=== PATIENT | female | born 1975 | race Caucasian/White ===

== ENCOUNTER 2016-11-08 11:53 | Emergency (ER) | payer MEDICAID ==
[~2016-11-08] VITALS: Ht 157.5 cm; Wt 75.0 kg
[2016-11-08] MEDS ORDERED: MORPHINE SULFATE 4 MG/ML, 1ML ONE ×2 (12:22→15:14)
[2016-11-08] MEDS: MORPHINE SULFATE 4 MG/ML, 1ML IVPush PRN ×2 (12:27→15:23)
[2016-11-08] MEDS ORDERED: SODIUM CHLORIDE 0.9% 1,000ML IVBOLUS ONE (12:30)
[2016-11-08] MEDS ORDERED: ONDANSETRON 2MG/ML, 2ML IVPush ONE (12:30)
[2016-11-08] MEDS ORDERED: SODIUM CHLORIDE FLUSH 10ML SYR IVF ONE (12:30)
[2016-11-08 12:52] LABS: BLOOD UREA NITROGEN 10 mg/dL (7-18)
[2016-11-08 12:58] LABS: ASPARTATE AMINO TRANSFERASE 15 U/L (15-37)
[2016-11-08] MEDS ORDERED: morphine SULFATE 10 MG/ML, 1ML IVPush ONE (15:00)
[2016-11-08 15:36] VITALS: BP 100/48
== END 2016-11-08 15:39 | disposition home or self-care (01) ==
LOC: ED 15:30
DX: O03.9 Complete or unspecified spontaneous abortion without complication (principal)
CPT/HCPCS: 36415; 76801; 80053; 81001; 84702; 85025; 86901; 96361; 96374; 96376; 99285; J7030

== ENCOUNTER 2017-02-07 20:34 | Emergency (ER) | payer MEDICAID ==
[~2017-02-07] VITALS: Ht 177.8 cm; Wt 88.6 kg
[2017-02-07] MEDS ORDERED: SODIUM CHLORIDE FLUSH 10ML SYR IVF ONE (21:00)
[2017-02-07] MEDS ORDERED: SODIUM CHLORIDE 0.9% 1,000ML IV ONE (21:00)
[2017-02-07] MEDS ORDERED: ONDANSETRON 2MG/ML, 2ML IVPush ONE (21:00)
[2017-02-07] MEDS ORDERED: MORPHINE SULFATE 4 MG/ML, 1ML ONE ×2 (21:54→22:37)
[2017-02-07] MEDS ORDERED: ONDANSETRON 2MG/ML, 2ML ONE (21:55)
[2017-02-07] MEDS: MORPHINE SULFATE 4 MG/ML, 1ML IVPush PRN ×2 (22:06→22:43)
[2017-02-07 22:20] LABS: HEMATOCRIT 41.9 % (34.6-47.8); WHITE BLOOD COUNT 10.8 x10^3/uL (3.4-10)
[2017-02-07 22:35] LABS: ASPARTATE AMINO TRANSFERASE 15 U/L (15-37); BLOOD UREA NITROGEN 21 mg/dL (7-18)
[2017-02-07 23:30] VITALS: BP 110/67
[2017-02-07] MEDS ORDERED: KETOROLAC 30 MG/1 ML ONE (23:55)
[2017-02-08] MEDS ORDERED: KETOROLAC 30 MG/1 ML IM ONE
== END 2017-02-08 00:08 | disposition home or self-care (01) ==
LOC: ED 23:23
DX: R10.12 Left upper quadrant pain (principal)
CPT/HCPCS: 36415; 74176; 80053; 81001; 83690; 84703; 85025; 96361; 96372; 96374; 96375; 96376; 99285; J2405; J7030; J1885

== ENCOUNTER 2017-06-23 12:26 | Emergency (ER) | payer MEDICAID ==
[~2017-06-23] VITALS: Ht 157.5 cm; Wt 85.8 kg
[2017-06-23 13:50] LABS: MICROSCOPIC NOT IND
[2017-06-23 13:52] LABS: CULTURE INDICATED? NO
[2017-06-23] MEDS ORDERED: SODIUM CHLORIDE FLUSH 10ML SYR IVF ONE (15:00)
[2017-06-23] MEDS ORDERED: SODIUM CHLORIDE 0.9% 1,000ML IV ONE (15:00)
[2017-06-23 15:11] LABS: BASOPHILS # (AUTO) 0.06 x10^3/uL (0-0.1); BASOPHILS % (AUTO) 1 % (0-1); EOSINOPHILS # (AUTO) 0.28 x10^3/uL (0-0.4); EOSINOPHILS % (AUTO) 3 % (1-7); LYMPHOCYTES # (AUTO) 2.54 x10^3/uL (1-3.4); LYMPHOCYTES % (AUTO) 29 % (22-44); MD NO; MEAN CORPUSCULAR HEMOGLOBIN 30.9 pg (27.0-34.8); MEAN CORPUSCULAR HGB CONC 33.4 g/dL (32.4-35.8); MEAN CORPUSCULAR VOLUME 92.5 fL (80-100); MEAN PLATELET VOLUME 7.8 fL (7.4-10.4); MONOCYTES # (AUTO) 0.44 x10^3/uL (0.2-0.8); MONOCYTES % (AUTO) 5 % (2-9); NEUTROPHILS # (AUTO) 5.43 x10^3/uL (1.8-6.8); NEUTROPHILS % (AUTO) 62 % (42-75); PLATELET COUNT 431 x10^3/uL (130-400); RED BLOOD COUNT 4.94 x10^6/uL (3.82-5.3); RED CELL DISTRIBUTION WIDTH 14.4 % (9.6-15.2)
[2017-06-23 15:21] LABS: CHLORIDE 108 mmol/L (98-107)
[2017-06-23 15:31] LABS: ALANINE AMINOTRANSFERASE 34 U/L (12-78); ALBUMIN 3.6 g/dL (3.4-5.0); ALKALINE PHOSPHATASE 93 U/L (45-117); ANION GAP 7 mmol/L (5-15); BILIRUBIN,TOTAL 0.2 mg/dL (0.2-1.0); TOTAL PROTEIN 7.4 g/dL (6.4-8.2)
[2017-06-23] MEDS ORDERED: KETOROLAC 30 MG/1 ML ONE (15:41)
[2017-06-23] MEDS ORDERED: ONDANSETRON 2MG/ML, 2ML ONE (15:41)
[2017-06-23] MEDS ORDERED: MORPHINE SULFATE 4 MG/ML, 1ML ONE (15:55)
[2017-06-23] MEDS ORDERED: KETOROLAC 30 MG/1 ML IVPush ONE (16:00)
[2017-06-23] MEDS ORDERED: ONDANSETRON 2MG/ML, 2ML IVPush ONE (16:00)
[2017-06-23] MEDS ORDERED: MORPHINE SULFATE 4 MG/ML, 1ML IVPush PRN (16:00)
[2017-06-23 17:24] VITALS: BP 98/49
== END 2017-06-23 18:06 | disposition home or self-care (01) ==
LOC: ED 17:17
DX: R10.13 Epigastric pain (principal); R10.10 Upper abdominal pain, unspecified; R50.9 Fever, unspecified
CPT/HCPCS: 36415; 74176; 80053; 81003; 84703; 85025; 96361; 96374; 96375; 99285; J1885; J2405; J7030